=== PATIENT | female | born 1995 | race Caucasian/White ===

== ENCOUNTER → 2022-11-18 14:49 | Outpatient (BNVA) | payer BC, SELFPAY | PROVIDERS: Visit Provider Obstetrics & Gynecology | DX: Z01.419 Encounter for gynecological examination (general) (routine) without abnormal findings (principal); N97.9 Female infertility, unspecified; N97.0 Female infertility associated with anovulation | CPT/HCPCS: 80053; 83001; 83520; 84146; 84443; 85025; 88175 ==

== ENCOUNTER 2022-12-14 13:08 | Outpatient (CLI) | payer BC, SELFPAY ==
--- NOTE | 2022-12-14 13:15 | US_ITS ---
WS: [id number] US pelv w/transvag [id number] HISTORY: N97.9 - Female infertility, unspecified COMPARISON: None available. Uterus: 7.7 cm x 3.4 cm x 3.0 cm. Normal size anteverted uterus. No fibroid or mass. Endometrium: 1.1 cm. Normal endometrium. No mass or increased vascularity. There is a very small amou nt of fluid along the cervical canal. Right ovary: 3.0 cm x 1.4 cm x 1.7 cm. Normal size and vascularity, no cystic or solid masses. Left ovary: 2.9 cm x 2.6 cm x 2.1 cm. Normal size and vascularity, no cystic or solid masses. Dominan t follicle measures 1.4 x 1.3 x 1.7 cm. Tiny, physiologic free fluid in the cul-de-sac and LEFT adnexa. US/US pelv w/transvag [id number] IMPRESSION: Normal transabdominal and transvaginal pelvic ultrasounds.
== END 2022-12-14 13:09 | disposition home or self-care (01) ==
PROVIDERS: Visit Provider Obstetrics & Gynecology
DX: N97.9 Female infertility, unspecified (principal)
CPT/HCPCS: 76830; 76856; 80053; 83001; 83520; 84146; 84443; 85025; 88175

== ENCOUNTER → 2023-02-01 15:44 | Outpatient (BNVA) | payer BC, SELFPAY | PROVIDERS: Visit Provider Obstetrics & Gynecology | DX: Z32.00 Encounter for pregnancy test, result unknown (principal) | CPT/HCPCS: 81025 ==

== ENCOUNTER → 2023-03-10 09:00 | Outpatient (BNVA) | payer BC, SELFPAY | PROVIDERS: Visit Provider Obstetrics & Gynecology | DX: Z32.00 Encounter for pregnancy test, result unknown (principal) | CPT/HCPCS: 81025; 84702 ==

== ENCOUNTER → 2023-03-12 10:53 | Outpatient (BNVA) | payer BC, SELFPAY | PROVIDERS: Visit Provider Obstetrics & Gynecology | DX: Z34.90 Encounter for supervision of normal pregnancy, unspecified, unspecified trimester (principal) | CPT/HCPCS: 84702 ==

== ENCOUNTER → 2023-03-15 11:00 | Outpatient (BNVA) | payer BC, SELFPAY | PROVIDERS: Visit Provider Obstetrics & Gynecology | DX: Z32.01 Encounter for pregnancy test, result positive (principal) | CPT/HCPCS: 84702 ==

== ENCOUNTER → 2023-04-13 10:46 | Outpatient (BNVA) | payer BC, SELFPAY | PROVIDERS: Visit Provider Obstetrics & Gynecology | DX: Z34.90 Encounter for supervision of normal pregnancy, unspecified, unspecified trimester (principal) | CPT/HCPCS: 76817; 84702 ==

== ENCOUNTER 2023-04-14 07:44 | Emergency (ER) | payer BC, SELFPAY ==
--- NOTE | 2023-04-14 07:50 | W.ED.PREGNAN ---
HPI - General: Chief complaint: Vaginal Bleeding Stated complaint: abd pain, 6 wks preg Time Seen by Provider: 04/14/23 07:47 Source: patient Mode of arrival: ambulatory History of Present Illness: 47-year-old female approximately 6 weeks gestation confirmed by ultrasound to be intrauterine with gestational sac but no pole old. She was seen yesterday by gynecology. Her beta-hCG was 13,000. She started having vaginal bleeding this morning. Along with some cramping. MD Complaint: abdominal pain Onset (ago): hour(s) Location: pelvis Severity: moderate Quality: Cramping Radiation: pelvis Relieving factors: none Exacerbating factors: none Vaginal bleeding: heavy Associated symptoms: Deny abdominal pain, dyspareunia, dysuria, headache(s), malaise, nausea, rash, seizures, short of breath, syncope, vaginal bleeding, vaginal discharge, visual changes, vomiting or weakness Review of Systems Const: Denies: fever(s), chills or malaise Card: Denies: chest pain or syncope Resp: Denies: dyspnea GI: Denies: abdominal pain, nausea or vomiting : Reports: vaginal bleeding and pelvic pain; Denies: flank pain, dysuria, urinary frequency, urinary urgency, vaginal discharge or dyspareunia Musc: Denies: neck pain or back pain Skin/Breast: Denies: rash Neuro: Denies: headache(s) PFSH ED PFSH: Family History (Updated 11/18/22 @ 15:13 by Smitha Tyson CMA) Family/Other Diabetes Maternal and Paternal grandparents Father Thyroid disease Denies family history of Cervical cancer Colon cancer Ovarian cancer Thyroid cancer Breast cancer Hypertension Uterine cancer Stroke Physical Exam Const: GENERAL APPEARANCE: cooperative and comfortable ORIENTATION/CONSCIOUSNESS: Yes awake, Yes oriented to person, Yes oriented to place and Yes oriented to time HENMT: COMMON NORMALS: normocephalic, atraumatic and hearing grossly normal bilaterally HEAD & SCALP: normocephalic and atraumatic Resp: COMMON NORMALS: normal respiratory effort, No retractions, No use of accessory muscles and clear to auscultation bilaterally AUSCULTATION: clear to auscultation bilaterally Cardio: COMMON NORMALS: regular rate, regular rhythm and No murmurs present (Cardio) RATE: regular rate RHYTHM: regular rhythm GI: COMMON NORMALS: No hepatosplenomegaly present AUSCULTATION: Yes normoactive bowel sounds PALPATION: Yes Tenderness to palpation present (GI) (Moderate suprapubic), No Guarding due to palpation present (GI) and Yes No hepatosplenomegaly present : SPECULUM EXAM - VAGINA: No vaginal bleeding OB/EXTERNAL & SPECULUM: No vaginal bleeding Extremity: COMMON NORMALS: normal to inspection, capillary refill normal, no clubbing, cyanosis or edema, no calf tenderness and no pedal edema Neuro: SENSORIUM/ORIENTATION: Yes oriented to person, Yes oriented to place and Yes oriented to time Skin: COMMON NORMALS: no rashes or lesions noted GENERAL SKIN EXAM: no rashes or lesions noted Course Vital Signs: Vital signs: Vital Signs Temperature 98.2 F 04/14/23 07:54 Pulse Rate 77 04/14/23 09:39 Respiratory Rate 15 04/14/23 09:39 Blood Pressure 135/87 04/14/23 07:54 Pulse Oximetry 97 04/14/23 09:39 Oxygen Delivery Me thod Room Air 04/14/23 07:54 MDM - OB/Uterine Contractions Medical Decision Making BhC and 8000. There is no pole seen yesterday. Given the sudden drop suspect she is having an miscarriage. Discussed with the patient follow-up with Dr. Durga leigh if has further problems. Medical Records I reviewed the patient's medical records. Lab Data I reviewed the patient's lab results. 04/14/23 08:08 04/14/23 08:08 Laboratory Results WBC 15.91 10^3/uL (3.29-11.43) H 04/14/23 08:08 RBC 3.97 10^6/uL (3.85-5.65) 04/14/23 08:08 Hgb 12.20 g/dL (11.27-16.99) 04/14/23 08:08 Hct 36.3 % (36-47) 04/14/23 08:08 MCV 91.4 fl (85-98) 04/14/23 08:08 MCH 30.7 pg (27-33) 04/14/23 08:08 MCHC 33.6 g/dL (30-55) 04/14/23 08:08 RDW 12.4 % (12.1-15.1) 04/14/23 08:08 Plt Count 311 10^3/cmm (157-399) 04/14/23 08:08 MPV 8.9 fL (7.4-10.4) 04/14/23 08:08 Neut % (Auto) 78.6 % 04/14/23 08:08 Lymph % (Auto) 16.2 % 04/14/23 08:08 Burnett % (Auto) 3.7 % 04/14/23 08:08 Eos % (Auto) 0.8 % 04/14/23 08:08 Baso % (Auto) 0.3 % 04/14/23 08:08 Neut # (Auto) 12.51 10^3/uL (1.8-7.7) H 04/14/23 08:08 Lymph # (Auto) 2.6 10^3/uL (0.8-4.8) 04/14/23 08:08 Burnett # (Auto) 0.6 10^3/uL (0.2-0.9) 04/14/23 08:08 Eos # (Auto) 0.1 10^3/uL (0.0-0.8) 04/14/23 08:08 Baso # (Auto) 0.1 10^3/uL (0.0-0.1) 04/14/23 08:08 Nucleated RBC % (auto) 0 % 04/14/23 08:08 Nucleated RBCs # 0.0 /100WBC 04/14/23 08:08 Sodium 137 mmol/L (136-145) 04/14/23 08:08 Potassium 3.5 mmol/L (3.5-5.1) 04/14/23 08:08 Chloride 103 mmol/L (98-107) 04/14/23 08:08 Carbon Dioxide 23 mmol/L (22-29) 04/14/23 08:08 Anion Gap 14.5 (5-19) 04/14/23 08:08 BUN 10 mg/dL (6-20) 04/14/23 08:08 Creatinine 0.6 mg/dL (0.5-0.9) 04/14/23 08:08 GFR Calculation 119.9 mL/min (90-130) 04/14/23 08:08 Glucose 116 mg/dL (65-115) H 04/14/23 08:08 Calculated Osmolality 284 mOsm/kg (285-295) L 04/14/23 08:08 Calcium 9.4 mg/dL (8.5-10.5) 04/14/23 08:08 Total Bilirubin 0.2 mg/dL (0.15-1.2) 04/14/23 08:08 AST 16 U/L (0-32) 04/14/23 08:08 ALT 23 U/L (0-33) 04/14/23 08:08 Alkaline Phosphatase 81 U/L (35-105) 04/14/23 08:08 Total Protein 6.9 g/dL (6.6-8.7) 04/14/23 08:08 Albumin 4.2 g/dL (3.5-5.2) 04/14/23 08:08 Globulin 2.7 g/dL (1.3-4.6) 04/14/23 08:08 Ser , Semi-Qnt 8093.00 mIU/mL 04/14/23 08:08 No radiology studies performed this visit Discharge Plan Discharge Patient Disposition: Home Clinical Impression: Spontaneous miscarriage Condition: Stable Prescriptions: New hydrocodone-acetaminophen 5-325 mg tablet 1 tab PO Q6H PRN (Reason: pain) Qty: 10 0RF diclofenac sodium 75 mg tablet,delayed release (DR/EC) 75 mg PO Q12H PRN (Reason: pain) Qty: 20 0RF No Action prenat.vits,tomas,ool-stop-zeaih Tablet 1 tab PO DAILY omega 0-avo-vyu-fish oil [Fish Oil] 60-90-500 mg capsule 1 cap PO DAILY Discharge Orders: Discharge ED (Routine); Ordered 04/14/23 Ordered By: Ramana Minaya Discharge Diet: Usual diet Discharge Activity: Resume usual activity Patient Instructions: Miscarriage (ED), Opioid Safety, Pain Management Activity Restrictions/Additional Instructions: Thank you for choosing [facility] for your healthcare needs today. Please realize this is an emergency room and that we are providing you with a medical screening exam and this may not be complete and all inclusive of all the testing and or work up that you may need to determine your ailment or severity of your illness. It is very important that you follow up as instructed or that you return to the Emergency Department should you have concerns or if your condition changes or worsens in any way. Follow-up with Dr. Calixto within the next week Coding Level of Care Code ED Tobacco Sizer for Angela Wilhelm
[2023-04-14 07:54] VITALS: BP 135/87; PULSE 72; RESP 18; TEMP 36.8; O2SAT 99; BMI 25.4
[2023-04-14 08:18] LABS: Basophils # 0.1 10^3/uL (0.0-0.1); Basophils % 0.3 %; Eosinophils # 0.1 10^3/uL (0.0-0.8); Eosinophils % 0.8 %; Hematocrit 36.3 % (36-47); Lymphocytes # 2.6 10^3/uL (0.8-4.8); Lymphocytes % 16.2 %; Mean Corpuscular HGB Conc 33.6 g/dL (30-55); Mean Corpuscular Hemoglobin 30.7 pg (27-33); Mean Corpuscular Volume 91.4 fl (85-98); Mean Platelet Volume 8.9 fL (7.4-10.4); Monocytes # 0.6 10^3/uL (0.2-0.9); Monocytes % 3.7 %; Neutrophils # 12.51 10^3/uL (1.8-7.7); Neutrophils % 78.6 %; Nucleated Red Blood Cells % 0 %; Platelet Count 311 10^3/cmm (157-399); Red Blood Count 3.97 10^6/uL (3.85-5.65); Red Cell Distribution Width 12.4 % (12.1-15.1); White Blood Count 15.91 10^3/uL (3.29-11.43)
[2023-04-14 08:41] LABS: Alanine Aminotransferase 23 U/L (0-33); Albumin Level 4.2 g/dL (3.5-5.2); Alkaline Phosphatase 81 U/L (35-105); Anion Gap 14.5 (5-19); Aspartate Amino Transferase 16 U/L (0-32); Blood Urea Nitrogen 10 mg/dL (6-20); Calcium 9.4 mg/dL (8.5-10.5); Carbon Dioxide 23 mmol/L (22-29); Chloride 103 mmol/L (98-107); Globulin 2.7 g/dL (1.3-4.6); Glomerular Filtration Rate 119.9 mL/min (90-130); Glucose 116 mg/dL (65-115); Osmolality Calculated 284 mOsm/kg (285-295); Potassium 3.5 mmol/L (3.5-5.1); Sodium 137 mmol/L (136-145); Total Bilirubin 0.2 mg/dL (0.15-1.2); Total Protein 6.9 g/dL (6.6-8.7)
[2023-04-14] MEDS: ondansetron 2 mg/ML SDV 2 mL 4 MG IVP (08:44)
[2023-04-14] MEDS: morphine 4 mg/mL SDV 1 mL IVP (08:46)
[2023-04-14 09:39] VITALS: PULSE 77; RESP 15; O2SAT 97
== END 2023-04-14 09:40 | disposition home or self-care (01) ==
PROVIDERS: Emergency Provider Family Medicine
DX: O03.9 Complete or unspecified spontaneous abortion without complication (principal)
CPT/HCPCS: 36415; 80053; 84702; 85025; 96374; 96375; 99284; J2270; J2405

== ENCOUNTER → 2023-04-16 10:43 | Outpatient (BNVA) | payer BC, SELFPAY | PROVIDERS: Visit Provider Obstetrics & Gynecology | DX: Z32.01 Encounter for pregnancy test, result positive (principal) | CPT/HCPCS: 84702 ==

== ENCOUNTER 2024-01-23 15:32 | Emergency (ER) | payer BC, SELFPAY ==
--- NOTE | 2024-01-23 15:40 | XRR_ITS ---
PROCEDURE INFORMATION: Exam: XR Chest Exam date and time: 01/23/2024 4:04 PM Age: 28 years old Clinical indication: Shortness of breath; Additional info: SOB TECHNIQUE: Imaging protocol: Radiologic exam of the chest. Views: 1 view. COMPARISON: No relevant prior studies available. FINDINGS: Lungs: Unremarkable. No consolidation. Pleural spaces: Unremarkable. No pleural effusion. No pneumothorax. Heart/Mediastinum: Unremarkable. No cardiomegaly. Bones/joints: Unremarkable. XR/XR chest 1V portable [id number] IMPRESSION: No acute findings.
--- NOTE | 2024-01-23 15:40 | ECG_ITS ---
[facility] Test Date: 2024-01-23 Pat Name: Jamie Hernandez Department: Room: Gender: Female Tub Operator: : 1995 Requested By: Madeleine Mclain Order Number: [id number] Adela MD: Joel Munoz M.D. Measurements Intervals [place] Rate: 95 P: 50 ND: 136 QRS: 54 QRSD: 72 T: 36 QT: 336 QTc: 424 Interpretive Statements SINUS RHYTHM WITH SINUS ARRHYTHMIA No previous ECG available for comparison Electronically Signed On 01-24-2024 12:04:18 CDT by Joel Munoz M.D. [email or web address]
[2024-01-23 15:43] VITALS: BP 162/98; PULSE 118; TEMP 36.8; O2SAT 95; BMI 28.3
[2024-01-23 20:01] LABS: Basophils # 0.1 10^3/uL (0.0-0.1); Basophils % 0.4 %; Hematocrit 42.4 % (36-47); Lymphocytes # 2.1 10^3/uL (0.8-4.8); Lymphocytes % 10.3 %; Mean Corpuscular Hemoglobin 31.6 pg (27-33); Mean Corpuscular Volume 93.2 fl (85-98); Mean Platelet Volume 8.7 fL (7.4-10.4); Monocytes # 0.7 10^3/uL (0.2-0.9); Monocytes % 3.3 %; Neutrophils # 17.78 10^3/uL (1.8-7.7); Neutrophils % 85.6 %; Nucleated Red Blood Cells % 0 %; Platelet Count 334 10^3/cmm (157-399); Red Blood Count 4.55 10^6/uL (3.85-5.65); Red Cell Distribution Width 12.5 % (12.1-15.1); White Blood Count 20.78 10^3/uL (3.29-11.43)
[2024-01-23 20:20] LABS: HCG, Serum Qual Negative (Negative)
[2024-01-23 20:21] LABS: Albumin Level 4.6 g/dL (3.5-5.2); Alkaline Phosphatase 78 U/L (35-105); Anion Gap 23.6 (5-19); Aspartate Amino Transferase 25 U/L (0-32); Blood Urea Nitrogen 17 mg/dL (6-20); Carbon Dioxide 18 mmol/L (22-29); Chloride 100 mmol/L (98-107); Creatinine Clr Calc Pharmacy 123.1773; Glucose 101 mg/dL (65-115); Lipase 14 U/L (13-60); Osmolality Calculated 288 mOsm/kg (285-295); Potassium 3.6 mmol/L (3.5-5.1); Sodium 138 mmol/L (136-145); Total Bilirubin 0.3 mg/dL (0.15-1.2); Total Protein 7.6 g/dL (6.6-8.7)
[2024-01-23 20:35] LABS: Alanine Aminotransferase 20 U/L (0-33)
--- NOTE | 2024-01-23 20:45 | W.ED.ANXIETY ---
Documented by User: MCKENNA Hendrix 01/24/24 00:48 HPI - Anxiety General: Chief Complaint: Anxiety Stated Complaint: SOB/loss of circulation Time Seen by Provider: 01/23/24 20:42 History of Present Illness: 28-year-old female comes in today for complaints of anxiety. Patient appears unwell. Patient appears nontoxic. Patient appears in mild pain. Patient noticed some blood when she was vomiting this evening which prompted her to come in. Related Data Home Medications Medication Instructions Recorded Confirmed omega 0-tac-dpt-fish oil 60 mg-90 1 cap PO DAILY 02/01/23 02/18/23 mg-500 mg capsule (Fish Oil) prenat.vits,tomas,phf-atid-ffjhr 1 tab PO DAILY 02/01/23 02/18/23 Previous Rx's Medication Instructions Recorded diclofenac sodium 75 mg 75 mg PO Q12H PRN pain #20 tabs 04/14/23 tablet,delayed release hydrocodone 5 mg-acetaminophen 325 1 tab PO Q6H PRN pain #10 tabs 04/14/23 mg tablet chlordiazepoxide HCl 25 mg capsule 25 mg PO Q6H PRN alcohol 01/23/24 withdrawal #20 caps ondansetron HCl 4 mg tablet 4 mg PO Q8H PRN nausea and 01/23/24 vomiting #10 tabs Allergies Allergy/AdvReac Type Severity Reaction Status Date / Time No Known Allergies Allergy Verified 02/01/23 15:31 Review of Systems General: Reports: 10 or more systems reviewed and unremarkable except in HPI and below PFSH ED PFSH: Family History (Updated 11/18/22 @ 15:[address] [facility]) Family/Other Diabetes Maternal and Paternal grandparents Father Thyroid disease Denies family history of Cervical cancer Colon cancer Ovarian cancer Thyroid cancer Breast cancer Hypertension Uterine cancer Stroke Physical Exam Const: COMMON NORMALS: alert HENMT: COMMON NORMALS: normocephalic HEAD & SCALP: normocephalic Neck/C-Spine: COMMON NORMALS: full ROM Chest: COMMONS NORMALS: normal palpation of entire chest wall Resp: COMMON NORMALS: normal respiratory effort and clear to auscultation bilaterally AUSCULTATION: clear to auscultation bilaterally Cardio: COMMON NORMALS: regular rate and regular rhythm RATE: regular rate RHYTHM: regular rhythm GI: COMMON NORMALS: Soft to palpation PALPATION: Yes Soft to palpation and Yes Tenderness to palpation present (GI) Back/Pelvis: COMMON NORMALS: thoracic and lumbar spine normal to inspection Extremity: COMMON NORMALS: full ROM Neuro: SENSORIUM/ORIENTATION: Yes alert Skin: COMMON NORMALS: turgor normal GENERAL SKIN EXAM: turgor normal Course Vital Signs: Vital signs: Vital Signs Temperature 98.3 F 01/23/24 15:43 Pulse Rate 118 H 01/23/24 15:43 Blood Pressure 162/98 01/23/24 15:43 Pulse Oximetry 95 01/23/24 15:43 MDM - Anxiety Medical Decision Making 28-year-old female comes in today for 3 days of vomiting. Patient reports trying to stop alcohol consumption. Patient is a daily drinker. Patient states that 3 days ago she decided that she would quit and shortly after stopping she started having episodes of emesis. Patient did try to drink some last night thinking it was secondary to withdrawals. Patient was not able to hold any of alcohol down. Patient today noticed some blood when she had her vomitus and was panicked and came into the ER. On exam patient appears unwell but not toxic. Patient does have some mild shaking. Patient does report that she has stopped before in the past without seizures. Vital signs are normal except for elevated pulse rate at 118. Differential diagnosis includes but not limited to esophagitis, gastritis, dehydration, ruptured esophagus, pancreatitis. CBC noted that elevated white count 20,000. CMP did show some increase in anion gap of 23. Chest x-ray was unremarkable. Chest abdomen and pelvis CT showed no abnormalities. No signs of ruptured esophagus or other abnormalities were noted in the gut or lung. Patient was not given 1 L of lactated Ringer's with improvement of symptoms after delivery of Zofran and Ativan. Patient be continued on Librium 25 mg every 6 hours as needed for alcohol withdrawal symptoms. Patient was agreeable to plan of care and need for follow-up or return for worsening symptoms such as high fever, seizure activity, or blood in vomit or stool. Lab Data 01/23/24 19:56 01/23/24 19:56 Radiology Impressions Chest X-Ray 01/23/24 15:40 IMPRESSION: No acute findings. Chest/Abdomen/Pelvis CT 01/23/24 20:50 IMPRESSION: No focal consolidation, pleural effusion or suspicious pulmonary nodules or masses. IMPRESSION: 1. No bowel obstruction or inflammatory process associated with the bowel. 2. No free air or significant free fluid in the abdomen or pelvis. 3. No evidence of appendicitis. Laboratory Results WBC 20.78 10^3/uL (3.29-11.43) H 01/23/24 19:56 RBC 4.55 10^6/uL (3.85-5.65) 01/23/24 19:56 Hgb 14.40 g/dL (11.27-16.99) 01/23/24 19:56 Hct 42.4 % (36-47) 01/23/24 19:56 MCV 93.2 fl (85-98) 01/23/24 19:56 MCH 31.6 pg (27-33) 01/23/24 19:56 MCHC 34.0 g/dL (30-55) 01/23/24 19:56 RDW 12.5 % (12.1-15.1) 01/23/24 19:56 Plt Count 334 10^3/cmm (157-399) 01/23/24 19:56 MPV 8.7 fL (7.4-10.4) 01/23/24 19:56 Neut % (Auto) 85.6 % 01/23/24 19:56 Lymph % (Auto) 10.3 % 01/23/24 19:56 Gillespie % (Auto) 3.3 % 01/23/24 19:56 Eos % (Auto) 0.0 % 01/23/24 19:56 Baso % (Auto) 0.4 % 01/23/24 19:56 Neut # (Auto) 17.78 10^3/uL (1.8-7.7) H 01/23/24 19:56 Lymph # (Auto) 2.1 10^3/uL (0.8-4.8) 01/23/24 19:56 Gillespie # (Auto) 0.7 10^3/uL (0.2-0.9) 01/23/24 19:56 Eos # (Auto) 0.0 10^3/uL (0.0-0.8) 01/23/24 19:56 Baso # (Auto) 0.1 10^3/uL (0.0-0.1) 01/23/24 19:56 Nucleated RBC % (auto) 0 % 01/23/24 19:56 Nucleated RBCs # 0.0 /100WBC 01/23/24 19:56 Sodium 138 mmol/L (136-145) 18 19:56 Potassium 3.6 mmol/L (3.5-5.1) 01/23/24 19:56 Chloride 100 mmol/L (98-107) 01/23/24 19:56 Carbon Dioxide 18 mmol/L (22-29) L 01/23/24 19:56 Anion Gap 23.6 (5-19) H 01/23/24 19:56 BUN 17 mg/dL (6-20) 01/23/24 19:56 Creatinine 0.6 mg/dL (0.5-0.9) 01/23/24 19:56 GFR Calculation 119.0 mL/min (90-130) 01/23/24 19:56 Glucose 101 mg/dL (65-115) 01/23/24 19:56 Calculated Osmolality 288 mOsm/kg (285-295) 01/23/24 19:56 Calcium 9.0 mg/dL (8.5-10.5) 01/23/24 19:56 Total Bilirubin 0.3 mg/dL (0.15-1.2) 01/23/24 19:56 AST 25 U/L (0-32) 01/23/24 19:56 ALT 20 U/L (0-33) 01/23/24 19:56 Alkaline Phosphatase 78 U/L (35-105) 01/23/24 19:56 Total Protein 7.6 g/dL (6.6-8.7) 01/23/24 19:56 Albumin 4.6 g/dL (3.5-5.2) 01/23/24 19:56 Globulin 3.0 g/dL (1.3-4.6) 01/23/24 19:56 Lipase 14 U/L (13-60) 01/23/24 19:56 HCG, Qual Negative (Negative) 01/23/24 19:56 Ethyl Alcohol 27 mg/dL (0-10) H 01/23/24 19:56 All radiology interpretation(s) finalized by discharge EKG Data EKG 1: I personally reviewed and interpreted this EKG as follows: EKG interpretation date: 01/23/24 EKG interpretation time: 21:02 Prior EKG tracings: not available for review Interpretation: Chest X-Ray 01/23/24 15:40 IMPRESSION: No acute findings. Chest/Abdomen/Pelvis CT 01/23/24 20:50 IMPRESSION: No focal consolidation, pleural effusion or suspicious pulmonary nodules or masses. IMPRESSION: 1. No bowel obstruction or inflammatory process associated with the bowel. 2. No free air or significant free fluid in the abdomen or pelvis. 3. No evidence of appendicitis. EKG shows a sinus rhythm with a regular rate at [address] elevation or ectopy is noted. No prior exam was available for comparison. Computer generated interpretation: Sinus rhythm with sinus arrhythmia. Normal EKG. Unconfirmed report. Other EKG comments: Chest X-Ray 01/23/24 15:40 IMPRESSION: No acute findings. Chest/Abdomen/Pelvis CT 01/23/24 20:50 IMPRESSION: No focal consolidation, pleural effusion or suspicious pulmonary nodules or masses. IMPRESSION: 1. No bowel obstruction or inflammatory process associated with the bowel. 2. No free air or significant free fluid in the abdomen or pelvis. 3. No evidence of appendicitis. Discharge Plan Discharge Patient Disposition: Home Clinical Impression: Alcohol withdrawal syndrome Qualifiers: Complication of substance-induced condition: with unspecified complication Qualified Code(s): F10.939 - Alcohol use, unspecified with withdrawal, unspecified Nausea & vomiting Qualifiers: Vomiting type: unspecified Qualified Code(s): R11.2 - Nausea with vomiting, unspecified Condition: Stable Prescriptions: New chlordiazepoxide HCl 25 mg capsule 25 mg PO Q6H PRN (Reason: alcohol withdrawal) Qty: 20 0RF ondansetron HCl 4 mg tablet 4 mg PO Q8H PRN (Reason: nausea and vomiting) Qty: 10 0RF No Action prenat.vits,tomas,jpl-hkry-iavla Tablet 1 tab PO DAILY omega 2-qtv-icy-fish oil [Fish Oil] 60-90-500 mg capsule 1 cap PO DAILY hydrocodone-acetaminophen 5-325 mg tablet 1 tab PO Q6H PRN (Reason: pain) Qty: 10 0RF diclofenac sodium 75 mg tablet,delayed release (DR/EC) 75 mg PO Q12H PRN (Reason: pain) Qty: 20 0RF Discharge Orders: Discharge ED (Routine); Ordered 01/23/24 Ordered By: Jose Alberts Discharge Diet: Advance as tolerated Discharge Activity: Increase activity as tolerated Patient Instructions: Alcohol Withdrawal (ED) Activity Restrictions/Additional Instructions: Drink frequent sips of fluid. Try to maintain hydration. Use electrolyte solutions such as Pedialyte or sports drinks to help maintain hydration. Follow-up with primary care. Return to ER for worsening symptoms. Coding Level of Care Code ED Button Reclaimer for Chg Fwd Documented by User: Skinny Walton DO 01/24/24 00:55 HPI - Anxiety General: Chief Complaint: Anxiety Stated Complaint: SOB/loss of circulation Time Seen by Provider: 01/23/24 20:42 Related Data Home Medications Medication Instructions Recorded Confirmed omega 6-wvc-cvu-fish oil 60 mg-90 1 cap PO DAILY 02/01/23 02/18/23 mg-500 mg capsule (Fish Oil) prenat.vits,tomas,xos-coom-yvqgu 1 tab PO DAILY 02/01/23 02/18/23 Previous Rx's Medication Instructions Recorded diclofenac sodium 75 mg 75 mg PO Q12H PRN pain #20 tabs 04/14/23 tablet,delayed release hydrocodone 5 mg-acetaminophen 325 1 tab PO Q6H PRN pain #10 tabs 04/14/23 mg tablet chlordiazepoxide HCl 25 mg capsule 25 mg PO Q6H PRN alcohol 01/23/24 withdrawal #20 caps ondansetron HCl 4 mg tablet 4 mg PO Q8H PRN nausea and 01/23/24 vomiting #10 tabs Allergies Allergy/AdvReac Type Severity Reaction Status Date / Time No Known Allergies Allergy Verified 02/01/23 15:31 [facility] ED PFSH: Family History (Updated 11/18/22 @ 15:[address] [facility]) Family/Other Diabetes Maternal and Paternal grandparents Father Thyroid disease Denies family history of Cervical cancer Colon cancer Ovarian cancer Thyroid cancer Breast cancer Hypertension Uterine cancer Stroke Course Vital Signs: Vital signs: Vital Signs Temperature 98.3 F 01/23/24 15:43 Pulse Rate 118 H 01/23/24 15:43 Blood Pressure 162/98 01/23/24 15:43 Pulse Oximetry 95 01/23/24 15:43 MDM - Anxiety Medical Decision Making 28-year-old female comes in today for 3 days of vomiting. Patient reports trying to stop alcohol consumption. Patient is a daily drinker. Patient states that 3 days ago she decided that she would quit and shortly after stopping she started having episodes of emesis. Patient did try to drink some last night thinking it was secondary to withdrawals. Patient was not able to hold any of alcohol down. Patient today noticed some blood when she had her vomitus and was panicked and came into the ER. On exam patient appears unwell but not toxic. Patient does have some mild shaking. Patient does report that she has stopped before in the past without seizures. Vital signs are normal except for elevated pulse rate at 118. Differential diagnosis includes but not limited to esophagitis, gastritis, dehydration, ruptured esophagus, pancreatitis. CBC noted that elevated white count 20,000. CMP did show some increase in anion gap of 23. Chest x-ray was unremarkable. Chest abdomen and pelvis CT showed no abnormalities. No signs of ruptured esophagus or other abnormalities were noted in the gut or lung. Patient was not given 1 L of lactated Ringer's with improvement of symptoms after delivery of Zofran and Ativan. Patient be continued on Librium 25 mg every 6 hours as needed for alcohol withdrawal symptoms. Patient was agreeable to plan of care and need for follow-up or return for worsening symptoms such as high fever, seizure activity, or blood in vomit or stool. This patient was originally seen by MCKENNA Erickson.? I agree with his history, evaluation, and treatment. Lab Data 01/23/24 19:56 01/23/24 19:56 Radiology Impressions Chest X-Ray 01/23/24 15:40 IMPRESSION: No acute findings. Chest/Abdomen/Pelvis CT 01/23/24 20:50 IMPRESSION: No focal consolidation, pleural effusion or suspicious pulmonary nodules or masses. IMPRESSION: 1. No bowel obstruction or inflammatory process associated with the bowel. 2. No free air or significant free fluid in the abdomen or pelvis. 3. No evidence of appendicitis. Laboratory Results WBC 20.78 10^3/uL (3.29-11.43) H 01/23/24 19:56 RBC 4.55 10^6/uL (3.85-5.65) 01/23/24 19:56 Hgb 14.40 g/dL (11.27-16.99) 01/23/24 19:56 Hct 42.4 % (36-47) 01/23/24 19:56 MCV 93.2 fl (85-98) 01/23/24 19:56 MCH 31.6 pg (27-33) 01/23/24 19:56 MCHC 34.0 g/dL (30-55) 01/23/24 19:56 RDW 12.5 % (12.1-15.1) 01/23/24 19:56 Plt Count 334 10^3/cmm (157-399) 01/23/24 19:56 MPV 8.7 fL (7.4-10.4) 01/23/24 19:56 Neut % (Auto) 85.6 % 01/23/24 19:56 Lymph % (Auto) 10.3 % 01/23/24 19:56 Gillespie % (Auto) 3.3 % 01/23/24 19:56 Eos % (Auto) 0.0 % 01/23/24 19:56 Baso % (Auto) 0.4 % 01/23/24 19:56 Neut # (Auto) 17.78 10^3/uL (1.8-7.7) H 01/23/24 19:56 Lymph # (Auto) 2.1 10^3/uL (0.8-4.8) 01/23/24 19:56 Gillespie # (Auto) 0.7 10^3/uL (0.2-0.9) 01/23/24 19:56 Eos # (Auto) 0.0 10^3/uL (0.0-0.8) 01/23/24 19:56 Baso # (Auto) 0.1 10^3/uL (0.0-0.1) 01/23/24 19:56 Nucleated RBC % (auto) 0 % 01/23/24 19:56 Nucleated RBCs # 0.0 /100WBC 01/23/24 19:56 Sodium 138 mmol/L (136-145) 01/23/24 19:56 Potassium 3.6 mmol/L (3.5-5.1) 01/23/24 19:56 Chloride 100 mmol/L (98-107) 01/23/24 19:56 Carbon Dioxide 18 mmol/L (22-29) L 01/23/24 19:56 Anion Gap 23.6 (5-19) H 01/23/24 19:56 BUN 17 mg/dL (6-20) 01/23/24 19:56 Creatinine 0.6 mg/dL (0.5-0.9) 01/23/24 19:56 GFR Calculation 119.0 mL/min (90-130) 01/23/24 19:56 Glucose 101 mg/dL (65-115) 01/23/24 19:56 Calculated Osmolality 288 mOsm/kg (285-295) 01/23/24 19:56 Calcium 9.0 mg/dL (8.5-10.5) 01/23/24 19:56 Total Bilirubin 0.3 mg/dL (0.15-1.2) 01/23/24 19:56 AST 25 U/L (0-32) 01/23/24 19:56 ALT 20 U/L (0-33) 01/23/24 19:56 Alkaline Phosphatase 78 U/L (35-105) 01/23/24 19:56 Total Protein 7.6 g/dL (6.6-8.7) 01/23/24 19:56 Albumin 4.6 g/dL (3.5-5.2) 01/23/24 19:56 Globulin 3.0 g/dL (1.3-4.6) 01/23/24 19:56 Lipase 14 U/L (13-60) 01/23/24 19:56 HCG, Qual Negative (Negative) 01/23/24 19:56 Ethyl Alcohol 27 mg/dL (0-10) H 01/23/24 19:56 EKG Data EKG 1: Interpretation: Chest X-Ray 01/23/24 15:40 IMPRESSION: No acute findings. Chest/Abdomen/Pelvis CT 01/23/24 20:50 IMPRESSION: No focal consolidation, pleural effusion or suspicious pulmonary nodules or masses. IMPRESSION: 1. No bowel obstruction or inflammatory process associated with the bowel. 2. No free air or significant free fluid in the abdomen or pelvis. 3. No evidence of appendicitis. Other EKG comments: Chest X-Ray 01/23/24 15:40 IMPRESSION: No acute findings. Chest/Abdomen/Pelvis CT 01/23/24 20:50 IMPRESSION: No focal consolidation, pleural effusion or suspicious pulmonary nodules or masses. IMPRESSION: 1. No bowel obstruction or inflammatory process associated with the bowel. 2. No free air or significant free fluid in the abdomen or pelvis. 3. No evidence of appendicitis. Discharge Plan Discharge Patient Disposition: Home Clinical Impression: Alcohol withdrawal syndrome Qualifiers: Complication of substance-induced condition: with unspecified complication Qualified Code(s): F10.939 - Alcohol use, unspecified with withdrawal, unspecified Nausea & vomiting Qualifiers: Vomiting type: unspecified Qualified Code(s): R11.2 - Nausea with vomiting, unspecified Condition: Stable Prescriptions: New chlordiazepoxide HCl 25 mg capsule 25 mg PO Q6H PRN (Reason: alcohol withdrawal) Qty: 20 0RF ondansetron HCl 4 mg tablet 4 mg PO Q8H PRN (Reason: nausea and vomiting) Qty: 10 0RF No Action prenat.vits,tomas,mkm-cvdp-zpvjf Tablet 1 tab PO DAILY omega 0-edm-arv-fish oil [Fish Oil] 60-90-500 mg capsule 1 cap PO DAILY hydrocodone-acetaminophen 5-325 mg tablet 1 tab PO Q6H PRN (Reason: pain) Qty: 10 0RF diclofenac sodium 75 mg tablet,delayed release (DR/EC) 75 mg PO Q12H PRN (Reason: pain) Qty: 20 0RF Discharge Orders: Discharge ED (Routine); Ordered 01/23/24 Ordered By: Jose Alberts Discharge Diet: Advance as tolerated Discharge Activity: Increase activity as tolerated Patient Instructions: Alcohol Withdrawal (ED) Activity Restrictions/Additional Instructions: Drink frequent sips of fluid. Try to maintain hydration. Use electrolyte solutions such as Pedialyte or sports drinks to help maintain hydration. Follow-up with primary care. Return to ER for worsening symptoms. Coding Level of Care Code ED Button Reclaimer for Angela Wilhelm
--- NOTE | 2024-01-23 20:50 | CTR_ITS ---
PROCEDURE INFORMATION: Exam: CT Chest With Contrast; Diagnostic Exam date and time: 01/23/2024 9:46 PM Age: 28 years old Clinical indication: Nausea and vomiting; Abdominal pain; Generalized; Shortness of breath; Chest pressure; Patient HX: C/O chest and diffuse abd pain with SOB and n/v. ; Additional info: N/v, chest pain, abd pain TECHNIQUE: Imaging protocol: Diagnostic computed tomography of the chest with contrast. Radiation optimization: All CT scans at this facility use at least one of these dose optimization techniques: automated exposure control; mA and/or kV adjustment per patient size (includes targeted exams where dose is matched to clinical indication); or iterative reconstruction. Contrast material: OMNI 350; Contrast volume: 100 ml; Contrast route: INTRAVENOUS (IV); COMPARISON: CR (CHEST, ) 01/23/2024 4:04 PM RADIATION DOSE METRICS: Total DLP (mGy-cm): 850.36 FINDINGS: Lungs: Unremarkable. No consolidation. No masses. Pleural spaces: Unremarkable. No pneumothorax. No pleural effusion. Heart: Unremarkable. No cardiomegaly. No pericardial effusion. Lymph nodes: Unremarkable. No enlarged lymph nodes. Vasculature: Unremarkable. No aortic aneurysm. Bones/joints: Unremarkable. No acute fracture. Soft tissues: Unremarkable. PROCEDURE INFORMATION: Exam: CT Abdomen And Pelvis With Contrast Exam date and time: 01/23/2024 9:46 PM Age: 28 years old Clinical indication: Nausea and vomiting; Abdominal pain; Generalized; Shortness of breath; Chest pressure; Patient HX: C/O chest and diffuse abd pain with SOB and n/v. ; Additional info: N/v, chest pain, abd pain TECHNIQUE: Imaging protocol: Computed tomography of the abdomen and pelvis with contrast. Radiation optimization: All CT scans at this facility use at least one of these dose optimization techniques: automated exposure control; mA and/or kV adjustment per patient size (includes targeted exams where dose is matched to clinical indication); or iterative reconstruction. Contrast material: OMNI 350; Contrast volume: 100 ml; Contrast route: INTRAVENOUS (IV); COMPARISON: US OB transvaginal [id number] 04/13/2023 10:57 AM RADIATION DOSE METRICS: Total DLP (mGy-cm): 850.36 FINDINGS: Liver: Normal. No mass. Gallbladder and biliary ducts: Normal. No calcified stones. No ductal dilation. Pancreas: Normal. No ductal dilation. Spleen: Normal. No splenomegaly. Adrenal glands: Normal. No mass. Kidneys and ureters: Normal. No hydronephrosis. Stomach and bowel: Unremarkable. No obstruction. No mucosal thickening. Appendix: No evidence of appendicitis. Intraperitoneal space: Unremarkable. No free air. No significant fluid collection. Vasculature: Unremarkable. No abdominal aortic aneurysm. Lymph nodes: Unremarkable. No enlarged lymph nodes. Urinary bladder: Unremarkable as visualized. Reproductive: Unremarkable as visualized. Bones/joints: Unremarkable. No acute fracture. Soft tissues: Unremarkable. CT/CT chest abdpel w/*[id number] IMPRESSION: No focal consolidation, pleural effusion or suspicious pulmonary nodules or masses. IMPRESSION: 1. No bowel obstruction or inflammatory process associated with the bowel. 2. No free air or significant free fluid in the abdomen or pelvis. 3. No evidence of appendicitis.
[2024-01-23 21:18] VITALS: BP 147/92; PULSE 98; O2SAT 96
[2024-01-23 21:22] LABS: Alcohol Level 27 mg/dL (0-10)
[2024-01-23] MEDS: iohexol 350 mg/mL 500 mL Btl (per mL) IV (21:50)
[2024-01-23] MEDS: pantoprazole 40 mg SDV IVP (21:55)
[2024-01-23] MEDS: lactated ringers 1,000 ML 999 ML IV (21:56)
[2024-01-23] MEDS: ondansetron 2 mg/ML SDV 2 mL 4 MG IVP (21:56)
[2024-01-23] MEDS: LORazepam 2 mg/mL INJ 1 mL 1 MG IVP (21:56)
[2024-01-23 22:18] VITALS: BP 130/86; PULSE 86; O2SAT 95
== END 2024-01-23 22:35 | disposition home or self-care (01) ==
PROVIDERS: Emergency Medicine; Emergency Provider Nurse Practitioner Family
DX: F10.939 Alcohol use, unspecified with withdrawal, unspecified (principal); R11.2 Nausea with vomiting, unspecified
CPT/HCPCS: 36415; 71045; 71260; 74177; 80053; 80307; 83690; 84703; 85025; 93005; 96361; 96374; 96375; 99285; J2060; J2405; J2470; J7120; Q9967

== ENCOUNTER → 2024-08-30 09:32 | Outpatient (BNVA) | payer BC, SELFPAY | PROVIDERS: PCP Nurse Practitioner; Visit Provider Nurse Practitioner | DX: F41.9 Anxiety disorder, unspecified (principal); F32.A Depression, unspecified | CPT/HCPCS: 80053; 84436; 84443; 84481; 85025 ==